=== PATIENT | female | born 1975 | race Hispanic/Latino ===

== ENCOUNTER 2017-05-12 13:39 | Emergency (ER) | payer BC ==
[2017-05-12 13:40] VITALS: BMI 26.5
[2017-05-12 13:48] VITALS: BP 120/72; PULSE 77; RESP 18; TEMP 97.6; O2SAT 100
--- NOTE | 2017-05-12 13:55 | ED PDOC ---
Arrival/HPI - General Chief Complaint: Chest Pain Time Seen by Provider: 05/12/17 13:44 Historian: Patient - History of Present Illness Narrative History of Present Illness (Text): 05/12/17 13:48 41 y/o female, pmh including htn, nkda, c/o chest pain x 2 days with no fall or trauma. Pt. stated that both episode is couple minute, happened while eating , non-exertional chest pain, no fall or trauma, no coughing, happened again today while eating lunch, no flank pain, no radiating pain, no numbness or tingling, no rash, no night sweat, no other medical or psychological complaints. Past Medical History - Provider Review Nursing Documentation Reviewed: Yes - Infectious Disease Hx of Infectious Diseases: None - Tetanus Immunization Tetanus Immunization: Unknown - Cardiac Hx Hypertension: Yes - Pulmonary Hx Respiratory Disorders: No - Neurological Hx Neurological Disorder: No - HEENT Hx HEENT Disorder: No - Renal Hx Renal Disorder: No - Endocrine/Metabolic Hx Endocrine Disorders: No - Hematological/Oncological Hx Blood Disorders: No - Integumentary Hx Dermatological Disorder: No - Musculoskeletal/Rheumatological Hx Musculoskeletal Disorders: No - Gastrointestinal Hx Gastrointestinal Disorders: No - Genitourinary/Gynecological Hx Genitourinary Disorders: No - Psychiatric Hx Depression: No Hx Emotional Abuse: No Hx Physical Abuse: No Hx Substance Use: No - Suicidal Assessment Feels Threatened In Home Enviroment: No Family/Social History - Physician Review Nursing Documentation Reviewed: Yes Family/Social History: Unknown Family HX Smoking Status: Never Smoked Hx Alcohol Use: No Hx Substance Use: No Hx Substance Use Treatment: No Allergies/Home Meds Allergies/Adverse Reactions: Allergies No Known Allergies Allergy (Verified 05/12/17 13:40) Home Medications: Home Meds Medication Instructions Recorded Confirmed Lisinopril [Zestril] 10 mg PO DAILY 05/12/17 05/12/17 Review of Systems - Review of Systems Constitutional: absent: Fatigue, Fevers Eyes: absent: Vision Changes ENT: absent: Hearing Changes Respiratory: absent: SOB, Cough Cardiovascular: Chest Pain Gastrointestinal: absent: Abdominal Pain, Diarrhea, Nausea, Vomiting Skin: absent: Rash, Pruritis Neurological: absent: Headache Psychiatric: absent: Anxiety, Depression Physical Exam Vital Signs Reviewed: Yes Vital Signs Temp Pulse Resp BP Pulse Ox 05/12/17 13:48 97.6 F 77 18 120/72 100 Temperature: Afebrile Blood Pressure: Normal Pulse: Regular Respiratory Rate: Normal Appearance: Positive for: Well-Appearing, Non-Toxic, Comfortable Pain Distress: Mild Mental Status: Positive for: Alert and Oriented X 3 - Systems Exam Head: Present: Atraumatic, Normocephalic Pupils: Present: PERRL Extroacular Muscles: Present: EOMI Conjunctiva: Present: Normal Mouth: Present: Moist Mucous Membranes Nose (External): Present: Atraumatic. No: Abrasion, Contusion, Laceration Nose (Internal): Present: Normal Inspection, No Active Bleeding. No: Rhinorrhea , Septal Hematoma, Epistaxis Neck: Present: Normal Range of Motion Respiratory/Chest: Present: Clear to Auscultation, Good Air Exchange. No: Respiratory Distress, Accessory Muscle Use Cardiovascular: Present: Regular Rate and Rhythm, Normal S1, S2. No: Murmurs Abdomen: Present: Tenderness (epigastric), Normal Bowel Sounds. No: Distention , Peritoneal Signs Back: Present: Normal Inspection Upper Extremity: Present: Normal Inspection. No: Cyanosis, Edema Lower Extremity: Present: Normal Inspection. No: Edema Neurological: Present: GCS=15, CN II-XII Intact, Speech Normal Skin: Present: Warm, Dry, Normal Color. No: Rashes Psychiatric: Present: Alert, Oriented x 3, Normal Insight, Normal Concentration Medical Decision Making ED Course and Treatment: 05/12/17 14:01 Differential: MS vs. Gastritis vs. Pancreatitis vs. Pneumonia vs. UTI vs. Cholecystitis -labs/ua/cardiac enzyme -ekg -cxr -gallbladder sonogram -IVF/pepcid/toradol -observe and reassess 05/12/17 16:05 -Urine hcg is negative -HEART Score is low. -EKG: NSR @ 76 BPM, no ST elevation or depression, no T wave inversion, no previous ekg avilable for comparison. -Chest xray show no active disease -Gallbladder sonogram: Cholelithiasis. No sonographic evidence of acute cholecystitis. -Labs are non-significant with troponin within normal limit after 2 days of symptoms. -UA show no UTI -Pt. feels completely relief with the pepcid, discussed about the labs and sonogram result which she will need general surgeon follow up as needed. -Discharge home with pepcid, bed rest, stay hydrated, follow up with your own pmd and GI/hydroelectric station chief within 2 days, return to the ER for any new or worsening signs or symptoms. - Lab Interpretations Lab Results: 05/12/17 14:00 05/12/17 14:00 Lab Results 05/12/17 15:47: Urine Color Yellow, Urine Appearance Sl cloudy, Urine pH 7.0, Ur Specific [place] 1.010, Urine Protein Negative, Urine Glucose (UA) Negative, Urine Ketones Negative, Urine Blood Large H, Urine Nitrate Negative, Urine Bilirubin Negative, Urine Urobilinogen 0.2, Ur Leukocyte Esterase Negative, Urine RBC 0 - 2, Urine WBC Negative, Ur Epithelial Cells 0 - 2 05/12/17 14:00: WBC 8.0, RBC 4.03, Hgb 12.3, Hct 37.8, MCV 93.8, MCH 30.5, MCHC 32.5, RDW 13.7, Plt Count 223, MPV 10.9, Gran % 62.6, Lymph % (Auto) 26.4, [place] % (Auto) 9.0 H, Eos % (Auto) 1.6, Baso % (Auto) 0.4, Gran # 5.04, Lymph # (Auto ) 2.1, [place] # (Auto) 0.7 H, Eos # (Auto) 0.1, Baso # (Auto) 0.03 05/12/17 14:00: Sodium 140, Potassium 3.9, Chloride 101, Carbon Dioxide 31, Anion Gap 12, BUN 19, Creatinine 0.7, Est GFR ( Amer) > 60, Est GFR (Non- Af Amer) > 60, Random Glucose 110, Calcium 9.8, Total Bilirubin 0.4, AST 23, ALT 21, Alkaline Phosphatase 53, Lactate Dehydrogenase 370, Total Creatine Kinase 105, Troponin I < 0.01, NT-Pro-B Natriuret Pep 35.7, Total Protein 7.5, Albumin 4.3, Globulin 3.2, Albumin/Globulin Ratio 1.3, Lipase 95 - RAD Interpretation Radiology Orders: 05/12/17 13:56 CHEST TWO VIEWS (PA/LAT) [RAD] Stat GALL BLADDER [US] Stat -Chest xray HISTORY: chest pain x 2 days COMPARISON: No prior. TECHNIQUE: Chest PA and lateral FINDINGS: LUNGS: No active pulmonary disease. PLEURA: No significant pleural effusion identified. No pneumothorax apparent. CARDIOVASCULAR: Normal. OSSEOUS STRUCTURES: No significant abnormalities. VISUALIZED UPPER ABDOMEN: Normal. OTHER FINDINGS: None. IMPRESSION: No active disease. -Gallbladder sonogram HISTORY: epigastric pain COMPARISON: None. TECHNIQUE: Sonographic evaluation of the right upper quadrant of the abdomen. FINDINGS: LIVER: Measures 16.4 cm in length. Patent portal vein. Portal venous flow: Hepatopetal. Unremarkable echogenicity of the liver parenchyma. No mass. No intrahepatic bile duct dilatation. GALLBLADDER: Cholelithiasis. Negative study for gallbladder wall thickening, pericholecystic fluid, sonographic Hernandez's sign. COMMON BILE DUCT: Measures 5.1 mm. No stones. No dilatation. PANCREAS: Unremarkable as visualized. No mass. No ductal dilatation. Portions of pancreatic tail are obscured by overlying bowel gas. RIGHT KIDNEY: Measures 4.3 x 9.5 cm in length. Normal echogenicity. No calculus, mass, or hydronephrosis. AORTA: No aneurysmal dilatation. IVC: Unremarkable. OTHER FINDINGS: None . IMPRESSION: Cholelithiasis. No sonographic evidence of acute cholecystitis. Polytechnic Teacher: Radiologist - EKG Interpretation EKG Interpretation (Text): 05/12/17 14:02 -EKG: NSR @ 76 BPM, no ST elevation or depression, no T wave inversion, no previous ekg avilable for comparison. Interpreted by ED Physician: Yes Type: 12 lead EKG Comparison: No previous EKG avail. - Medication Orders Current Medication Orders: Sodium Chloride (Sodium Chloride 0.9%) 1,000 mls @ 250 mls/hr IV .Q4H CHRISTIAN Last Admin: 05/12/17 14:11 Dose: 250 mls/hr eMAR Start Stop Document 05/12/17 14:11 HP (Rec: 05/12/17 14:11 HP [id number]) Intravenous Solution Start Date 05/12/17 Start Time 14:11 End Date 05/12/17 End time 18:11 Total Infusion Time 240 Discontinued Medications Famotidine (Pepcid) 20 mg IVP STAT STA Stop: 05/12/17 13:57 Last Admin: 05/12/17 14:11 Dose: 20 mg IVP Administration Document 05/12/17 14:11 HP (Rec: 05/12/17 14:11 HP [id number]) Charges for Administration # of IVP Administrations 1 Sodium Chloride (Sodium Chloride 0.9%) 1,000 mls @ 100 mls/hr IV .Q10H CHRISTIAN Ketorolac Tromethamine (Toradol) 30 mg IVP STAT STA Stop: 05/12/17 13:57 Last Admin: 05/12/17 14:11 Dose: 30 mg MAR Pain Assessment Document 05/12/17 14:11 HP (Rec: 05/12/17 14:11 HP [id number]) Pain Reassessment Is this a pain reassessment? 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 Disposition/Present on Arrival - Present on Arrival Any Indicators Present on Arrival: No History of DVT/PE: No History of Uncontrolled Diabetes: No Urinary Catheter: No History of Decub. Ulcer: No History Surgical Site Infection Following: None - Disposition Have Diagnosis and Disposition been Completed?: Yes Diagnosis: Atypical chest pain, Cholelithiasis Disposition: HOME/ ROUTINE Disposition Time: 14:03 Patient Plan: Discharge Patient Problems: Current Active Problems Problem Status Onset Atypical chest pain Acute Cholelithiasis Acute Condition: IMPROVED Discharge Instructions (ExitCare): Chest Pain (ED) Additional Instructions: -Discharge home with pepcid, bed rest, stay hydrated, follow up with your own pmd and GI/hydroelectric station chief within 2 days, return to the ER for any new or worsening signs or symptoms. Prescriptions: Famotidine [Pepcid] 20 mg PO BID #28 tab Referrals: Shivam Navarrete DO [Primary Care Provider] - Follow up with primary Terrence Sidhu MD [Staff Provider] - Follow up with primary Elian Austin MD [Staff Provider] - Follow up with primary Joel Red MD [Medical Doctor] - Follow up with primary Forms: WORK NOTE
[2017-05-12] MEDS ORDERED: Sodium Chloride 0.9% 1,000 ML IV SCH ×2 (14:00→14:03)
[2017-05-12 14:42] LABS: BASO # 0.03 K/mm3 (0.0-2.0); BASO % 0.4 % (0.0-3.0); EOS # 0.1 (0.0-0.7); EOS % 1.6 % (1.5-5.0); GRAN # 5.04 (1.4-6.5); GRAN % 62.6 % (50.0-68.0); HEMOGLOBIN 12.3 g/dL (12.0-16.0); LYMPH # 2.1 (1.2-3.4); LYMPH % 26.4 % (22.0-35.0); MEAN CELL VOLUME 93.8 fl (80.0-105.0); MEAN CORPUSCULAR HEMOGLOBIN 30.5 pg (25.0-35.0); MEAN CORPUSCULAR HGB CONC 32.5 g/dl (31.0-37.0); MEAN PLATELET VOLUME 10.9 fl (7.0-11.0); MONO # 0.7 (0.1-0.6); RBC 4.03 10^6/uL (3.5-6.1); RED CELL DISTRIBUTION WIDTH 13.7 % (11.5-14.5)
--- NOTE | 2017-05-12 14:47 | CARD ---
APPROVED REPORT EKG Measurement Heart [id number] <Conclusion> Normal sinus rhythm Normal ECG
[2017-05-12 15:00] LABS: B-TYPE NATRIURETIC PEPTIDE 35.7 pg/mL (0-450); TROPONIN I < 0.01 ng/mL
[2017-05-12 15:26] LABS: ALB/GLOB RATIO 1.3 (1.1-1.8); ALBUMIN 4.3 g/dL (3.0-4.8); ALT/SGPT 21 U/L (7-56); AST/SGOT 23 U/L (14-36); BLOOD UREA NITROGEN 19 mg/dL (7-21); CALCIUM 9.8 mg/dL (8.4-10.5); GFR AFRICAN-AMERICAN > 60; GFR NON-AFRICAN AMERICAN > 60; LIPASE 95 U/L (23-300)
--- NOTE | 2017-05-12 15:36 | RAD ---
HISTORY: chest pain x 2 days COMPARISON: No prior. TECHNIQUE: Chest PA and lateral FINDINGS: LUNGS: No active pulmonary disease. PLEURA: No significant pleural effusion identified. No pneumothorax apparent. CARDIOVASCULAR: Normal. OSSEOUS STRUCTURES: No significant abnormalities. VISUALIZED UPPER ABDOMEN: Normal. OTHER FINDINGS: None. IMPRESSION: No active disease.
--- NOTE | 2017-05-12 15:52 | US ---
HISTORY: epigastric pain COMPARISON: None. TECHNIQUE: Sonographic evaluation of the right upper quadrant of the abdomen. FINDINGS: LIVER: Measures 16.4 cm in length. Patent portal vein. Portal venous flow: Hepatopetal. Unremarkable echogenicity of the liver parenchyma. No mass. No intrahepatic bile duct dilatation. GALLBLADDER: Cholelithiasis. Negative study for gallbladder wall thickening, pericholecystic fluid, sonographic Hernandez's sign. COMMON BILE DUCT: Measures 5.1 mm. No stones. No dilatation. PANCREAS: Unremarkable as visualized. No mass. No ductal dilatation. Portions of pancreatic tail are obscured by overlying bowel gas. RIGHT KIDNEY: Measures 4.3 x 9.5 cm in length. Normal echogenicity. No calculus, mass, or hydronephrosis. AORTA: No aneurysmal dilatation. IVC: Unremarkable. OTHER FINDINGS: None . IMPRESSION: Cholelithiasis. No sonographic evidence of acute cholecystitis.
[2017-05-12 15:56] LABS: URINE APPEARANCE SL CLOUDY (CLEAR); URINE BILIRUBIN NEGATIVE (NEGATIVE); URINE BLOOD LARGE (NEGATIVE); URINE COLOR YELLOW (YELLOW); URINE GLUCOSE (UA) NEGATIVE (NEGATIVE); URINE LEUKOCYTE ESTERASE NEGATIVE Leu/uL (NEGATIVE); URINE PROTEIN NEGATIVE mg/dL (<30 mg/dL); URINE UROBILINOGEN 0.2 E.U./dL (<1 E.U./dL)
[2017-05-12 16:10] LABS: URINE EPITHELIAL CELLS 0 - 2 /hpf (0-5); URINE RBC 0 - 2 /hpf (0-2); URINE WBC NEGATIVE /hpf (0-6)
== END 2017-05-12 16:23 | disposition home or self-care (01) ==
LOC: ED 13:39
DX: R07.9 Chest pain, unspecified (principal); K80.20 Calculus of gallbladder without cholecystitis without obstruction; I10 Essential (primary) hypertension
CPT/HCPCS: 71046; 76705; 80053; 81001; 82550; 83615; 83690; 83880; 84484; 85025; 93005; 96361; 96374; 96375; 99283; J1885; J7040

== ENCOUNTER 2017-05-19 07:06 | Day surgery (SDC) | payer BC ==
[2017-05-19 07:07] VITALS: BMI 26.5
[2017-05-19] MEDS ORDERED: Sodium Chloride 0.9% 1,000 ML IV STA (08:00)
--- NOTE | 2017-05-19 08:09 | ED PDOC ---
Arrival/HPI <Jeramie David - Last Filed: 05/19/17 08:34> - General Historian: Patient - History of Present Illness Time/Duration: > week Symptom Course: Intermittent Quality: Cramping, Burning Severity Level: 5 Activities at Onset: Eating Context: Sitting <Dony Chrisn - Last Filed: 05/19/17 09:43> - General Chief Complaint: Abdominal Pain Time Seen by Provider: 05/19/17 07:39 - History of Present Illness Narrative History of Present Illness (Text): 05/19/17 08:05 41F pmhx of HTN controlled presents to [facility] ED w/ continued intermittent Mid- epigastric and RLQ radiating to the right shoulder crampy abd pain for over one week (8days). Patient was seen last Friday (8days ago) for similar symptoms which revealed cholelithiasis. Pain is worse after eating, better w/ standing and fasting. Currently associated nausea, no vomiting. Last meal was yesterday at 10pm and has not eaten since then. No recent foreign travel or sick contacts Denies current: fevers, chills, chest pain, shortness of breath, vomiting, diarrhea, changes in urinary or bowel habits, numbness/tingling in extremities. Of note: Saw Dr. Navarrete last week and referred to Dr. Wright for surgery. If pain continued to come to the ER PMD: [place] Surgeon: Kyle PMH: HTN PSH: none ALL: NKDA SocialHx: denies ETOH, tobacco, recreational drug use (Arsen Chris) Past Medical History - Provider Review Nursing Documentation Reviewed: Yes - Travel History Have you recently traveled outside [place] w/in the past 3 mons?: No - Infectious Disease Hx of Infectious Diseases: None - Tetanus Immunization Tetanus Immunization: Unknown - Cardiac Hx Cardiac Disorders: Yes Hx Hypertension: Yes - Pulmonary Hx Respiratory Disorders: No - Neurological Hx Neurological Disorder: No - HEENT Hx HEENT Disorder: No - Renal Hx Renal Disorder: No - Endocrine/Metabolic Hx Endocrine Disorders: No - Hematological/Oncological Hx Blood Disorders: No - Integumentary Hx Dermatological Disorder: No - Musculoskeletal/Rheumatological Hx Musculoskeletal Disorders: No - Gastrointestinal Hx Gastrointestinal Disorders: No - Genitourinary/Gynecological Hx Genitourinary Disorders: No - Psychiatric Hx Depression: No Hx Emotional Abuse: No Hx Physical Abuse: No Hx Substance Use: No - Suicidal Assessment Feels Threatened In Home Enviroment: No <Dony Chrisn - Last Filed: 05/19/17 09:43> Family/Social History - Physician Review Nursing Documentation Reviewed: Yes Family/Social History: Other (non-contributory) Smoking Status: Never Smoked Hx Alcohol Use: Yes Frequency of alcohol use: Socially Hx Substance Use: No Hx Substance Use Treatment: No <YnessheaDony finchn - Last Filed: 05/19/17 09:43> Allergies/Home Meds <Jeramie David - Last Filed: 05/19/17 08:34> <Rolf Chrissan - Last Filed: 05/19/17 09:43> Allergies/Adverse Reactions: Allergies No Known Allergies Allergy (Verified 05/19/17 07:36) Home Medications: Home Meds Medication Instructions Recorded Confirmed Lisinopril [Zestril] 10 mg PO DAILY 05/12/17 05/19/17 Review of Systems - Physician Review All systems were reviewed & negative as marked: Yes - Review of Systems Constitutional: Normal. absent: Weight Change, Fevers Eyes: absent: Vision Changes, Photophobia ENT: absent: Hearing Changes, Tinnitus Respiratory: absent: SOB, Cough, Sputum Cardiovascular: absent: Chest Pain, Palpitations Gastrointestinal: Abdominal Pain, Nausea, Appetite Changes. absent: Stool Changes, Constipation, Diarrhea, Vomiting, Hematochezia, Hematemesis Genitourinary Female: absent: Dysuria, Frequency, Hematuria Musculoskeletal: Back Pain (Refferred right shoulder pain). absent: Arthralgias Neurological: absent: Headache, Dizziness Endocrine: absent: Diaphoresis Hemo/Lymphatic: absent: Adenopathy Psychiatric: absent: Anxiety <Dony Chrisn - Last Filed: 05/19/17 09:43> Physical Exam Vital Signs Reviewed: Yes Temperature: Afebrile Blood Pressure: Normal Pulse: Regular Respiratory Rate: Normal Appearance: Positive for: Well-Appearing, Non-Toxic, Comfortable Pain Distress: None Mental Status: Positive for: Alert and Oriented X 3 - Systems Exam Head: Present: Atraumatic, Normocephalic Pupils: Present: PERRL Extroacular Muscles: Present: EOMI Conjunctiva: Present: Normal Mouth: Present: Moist Mucous Membranes. No: Drooling, Trismus Pharnyx: Present: Normal. No: ERYTHEMA, EXUDATE Neck: Present: Normal Range of Motion. No: MIDLINE TENDERNESS, JVD Respiratory/Chest: Present: Clear to Auscultation, Good Air Exchange. No: Respiratory Distress, Accessory Muscle Use Cardiovascular: Present: Regular Rate and Rhythm, Normal S1, S2. No: Murmurs Abdomen: Present: Tenderness (RUQ +cruz). No: Distention, Peritoneal Signs, McBurney's Point Tender, Rovsing's Sign Present Back: Present: Normal Inspection. No: CVA Tenderness, Midline Tenderness Upper Extremity: Present: Normal Inspection, NORMAL PULSES. No: Cyanosis, Edema Lower Extremity: Present: Normal Inspection. No: Edema, CALF TENDERNESS Neurological: Present: GCS=15, Speech Normal Skin: Present: Warm, Dry Psychiatric: Present: Alert, Oriented x 3 <Arsen Chris - Last Filed: 05/19/17 09:43> Vital Signs Temp Pulse Resp BP Pulse Ox 05/19/17 09:29 56 L 18 131/72 99 05/19/17 07:37 98.2 F 68 17 135/80 99 Medical Decision Making <Jeramie David - Last Filed: 05/19/17 08:34> - Lab Interpretations I have reviewed the lab results: Yes Interpretation: No sign. chg./baseline - EKG Interpretation Interpreted by ED Physician: Yes Comparison: Similar to previous EKG <Arsen Chris - Last Filed: 05/19/17 09:43> ED Course and Treatment: 05/19/17 08:34 Seen and examined with the resident. Our history and physical exam reveals a young woman with continued right upper quadrant abdominal pain. No vomiting. Known cholelithiasis on ultrasound last week. She will be admitted to the hospital for surgery this morning. (Jeramie David) 05/19/17 08:21 CBC/CMP/ Lipase CXR/EKG serial abd exam IVF/Pepcid/Zofran re-eval and reassess Discussed case in detail w/ the surgery team. Will be admitted and plan for OR today for cholecystectomy (Arsen Chris) - Lab Interpretations Narrative Lab Interpretation (Text): 05/19/17 09:42 WBC WNL POC negative No elevation in Lipase (Arsen Chris) Lab Results: 05/19/17 08:45 05/19/17 08:45 Lab Results 05/19/17 08:45: Sodium 140, Potassium 3.9, Chloride 103, Carbon Dioxide 25, Anion Gap 15, BUN 22 H, Creatinine 0.7, Est GFR ( Amer) > 60, Est GFR ( Non-Af Amer) > 60, Random Glucose 88, Calcium 9.6, Total Bilirubin 0.5, AST 22, ALT 23, Alkaline Phosphatase 54, Total Protein 7.5, Albumin 4.2, Globulin 3.3, Albumin/Globulin Ratio 1.3, Lipase 91 05/19/17 08:45: Urine Color Yellow, Urine Appearance Clear, Urine pH 6.0, Ur Specific [place] >= 1.030, Urine Protein Trace H, Urine Glucose (UA) Negative, Urine Ketones Negative, Urine Blood Negative, Urine Nitrate Negative, Urine Bilirubin Negative, Urine Urobilinogen 0.2, Ur Leukocyte Esterase Negative, Urine RBC 0 - 2, Urine WBC 1 - 3, Ur Epithelial Cells 6 - 8, Amorphous Sediment Few, Urine Bacteria Many, Urine Other Uyeast 05/19/17 08:45: WBC 6.1 D, RBC 3.96, Hgb 12.2, Hct 36.4, MCV 91.9, MCH 30.8, MCHC 33.5, RDW 13.5, Plt Count 215, MPV 10.7, Gran % 58.7, Lymph % (Auto) 28.2, [place] % (Auto) 10.8 H, Eos % (Auto) 1.8, Baso % (Auto) 0.5, Gran # 3.59, Lymph # (Auto) 1.7, [place] # (Auto) 0.7 H, Eos # (Auto) 0.1, Baso # (Auto) 0.03 - RAD Interpretation Radiology Orders: 05/19/17 08:00 CHEST PORTABLE [RAD] Stat - EKG Interpretation EKG Interpretation (Text): 05/19/17 09:42 Sinus Colt Otherwise normal EKG (Arsen Chris) - Medication Orders Current Medication Orders: Ceftriaxone Sodium (Rocephin 1 Gram Ivpb) 1 gm in 100 mls @ 100 mls/hr IVPB DAILY CHRISTIAN PRN Reason: Protocol Discontinued Medications Famotidine (Pepcid) 20 mg IVP STAT STA Stop: 05/19/17 08:03 Last Admin: 05/19/17 08:51 Dose: 20 mg IVP Administration Document 05/19/17 08:51 [facility] (Rec: 05/19/17 08:51 [id number] Charges for Administration # of IVP Administrations 1 Sodium Chloride (Sodium Chloride 0.9%) 1,000 mls @ 999 mls/hr IV .Q1H1M STA Stop: 05/19/17 09:00 Last Admin: 05/19/17 08:51 Dose: 999 mls/hr eMAR Start Stop Document 05/19/17 08:51 [facility] (Rec: 05/19/17 08:51 [id number] Intravenous Solution Start Date 05/19/17 Start Time 08:51 End Date 05/19/17 End time 09:51 Total Infusion Time 60 Ondansetron HCl (Zofran Inj) 4 mg IVP STAT STA Stop: 05/19/17 08:03 Last Admin: 05/19/17 08:50 Dose: 4 mg IVP Administration Document 05/19/17 08:50 [facility] (Rec: 05/19/17 08:51 [id number] Charges for Administration # of IVP Administrations 1 - PA / COMMERCIAL REAL ESTATE AGENT / Resident Statement / has reviewed & agrees with the documentation as recorded. / has examined the patient and agrees with the treatment plan. <Arsen Chris - Last Filed: 05/19/17 09:43> Disposition/Present on Arrival - Present on Arrival Any Indicators Present on Arrival: No History of DVT/PE: No History of Uncontrolled Diabetes: No Urinary Catheter: No History of Decub. Ulcer: No - Disposition Have Diagnosis and Disposition been Completed?: Yes Patient Plan: Observation <Jeramie David - Last Filed: 05/19/17 08:34> - Present on Arrival Any Indicators Present on Arrival: No History of DVT/PE: No History of Uncontrolled Diabetes: No Urinary Catheter: No History of Decub. Ulcer: No History Surgical Site Infection Following: None - Disposition Have Diagnosis and Disposition been Completed?: Yes Disposition Time: 08:28 Patient Plan: Admission <Arsen Chris - Last Filed: 05/19/17 09:43> - Disposition Diagnosis: Symptomatic cholelithiasis Disposition: HOSPITALIZED Patient Problems: Current Active Problems Problem Status Onset Symptomatic cholelithiasis Acute Condition: STABLE Referrals: Shivam Navarrete DO [Primary Care Provider] - Follow up with primary Forms: [employer] ([place])
--- NOTE | 2017-05-19 08:40 | CP.PCM.CON ---
History of Present Illness - History of Present Illness History of Present Illness: CC: Abdominal Pain HPI: 41 year old female presents for abdominal pain and "pressure" that has been going on for about a week. Patient stated she came to ED on Friday for "chest pain" and was found to have gallstones. Patient was discharged and followed up with PCP Dr. Navarrete on Friday. Dr. Navarrete told patient that if the pain does not improve, to come to ED. Patient stated the pain is constant and has trouble finding a comfortable place. Pain has not improved with advil. Patient denies eating or drinking since 10pm last night. Patient denies nausea and vomiting. MedHx: HTN Medications: Lisinopril 10mg Allergies: NKDA Hospitalization: denied PSH: [place] Teeth Removal SocialHX: denies tobacco use or illicit drug use; social drinker. FamHX: Mother- Ovarian Cancer (41); Father- Alive Heart Disease, Heart Transplant, Cirrhosis Review of Systems - Constitutional Constitutional: absent: Chills, Fever - Cardiovascular Cardiovascular: absent: Chest Pain - Respiratory Respiratory: absent: Dyspnea - Gastrointestinal Gastrointestinal: Abdominal Pain. absent: Constipation, Heartburn, Hematemesis , Hematochezia, Loose Stools, Nausea, Vomiting - Genitourinary Genitourinary: absent: Dysuria Past Patient History - Infectious Disease Hx of Infectious Diseases: None - Tetanus Immunizations Tetanus Immunization: Unknown - Past Social History Smoking Status: Never Smoked Alcohol: Social Drugs: Denies - CARDIAC Hx Cardiac Disorders: Yes Hx Hypertension: Yes - PULMONARY Hx Respiratory Disorders: No - NEUROLOGICAL Hx Neurological Disorder: No - HEENT Hx HEENT Problems: No - RENAL Hx Chronic Kidney Disease: No - ENDOCRINE/METABOLIC Hx Endocrine Disorders: No - HEMATOLOGICAL/ONCOLOGICAL Hx Blood Disorders: No - INTEGUMENTARY Hx Dermatological Problems: No - MUSCULOSKELETAL/RHEUMATOLOGICAL Hx Musculoskeletal Disorders: No - GASTROINTESTINAL Hx Gastrointestinal Disorders: No - GENITOURINARY/GYNECOLOGICAL Hx Genitourinary Disorders: No - PSYCHIATRIC Hx Depression: No Hx Emotional Abuse: No Hx Physical Abuse: No Hx Substance Use: No - SURGICAL HISTORY Hx Surgeries: No Meds Allergies/Adverse Reactions: Allergies Allergy/AdvReac Type Severity Reaction Status Date / Time No Known Allergies Allergy Verified 05/19/17 07:36 - Medications Medications: Current Medications Sodium Chloride (Sodium Chloride 0.9%) 1,000 mls @ 999 mls/hr IV .Q1H1M STA Stop: 05/19/17 09:00 Physical Exam - Constitutional Appears: Non-toxic, No Acute Distress - Head Exam Head Exam: ATRAUMATIC, NORMOCEPHALIC - Eye Exam Eye Exam: Normal appearance - ENT Exam ENT Exam: Mucous Membranes Moist - Neck Exam Neck exam: Positive for: Normal Inspection - Respiratory Exam Respiratory Exam: NORMAL BREATHING PATTERN - Cardiovascular Exam Cardiovascular Exam: REGULAR RHYTHM, +S1, +S2 - GI/Abdominal Exam GI & Abdominal Exam: Soft, Tenderness. absent: Distended, Firm, Guarding, Hernia, Rebound, Rigid Additional comments: RUQ TTP - Rectal Exam Rectal Exam: Deferred - Extremities Exam Extremities exam: Positive for: normal inspection - Back Exam Back exam: NORMAL INSPECTION - Neurological Exam Neurological exam: Alert, Oriented x3 - Psychiatric Exam Psychiatric exam: Normal Affect, Normal Mood - Skin Skin Exam: Dry, Intact, Warm Results - Vital Signs Recent Vital Signs: Last Vital Signs Temp 98.2 F 05/19/17 07:37 Pulse 68 05/19/17 07:37 Resp 17 05/19/17 07:37 BP 135/80 05/19/17 07:37 Pulse Ox 99 05/19/17 07:37 Assessment & Plan - Assessment and Plan (Free Text) Assessment: 1. Cholelithiasis -OR today, Laparoscopic Cholecystecomy -NPO - IVF -Rocephin 1gm -Pain control - Nausea control 2. Hypertension -Continue Lisinopril after procedure 3. Prophylaxis -SCDs -GI ppx Will DW Dr. Wright
[2017-05-19 08:58] LABS: BASO # 0.03 K/mm3 (0.0-2.0); BASO % 0.5 % (0.0-3.0); EOS # 0.1 (0.0-0.7); EOS % 1.8 % (1.5-5.0); GRAN # 3.59 (1.4-6.5); GRAN % 58.7 % (50.0-68.0); HEMOGLOBIN 12.2 g/dL (12.0-16.0); LYMPH # 1.7 (1.2-3.4); LYMPH % 28.2 % (22.0-35.0); MEAN CELL VOLUME 91.9 fl (80.0-105.0); MEAN CORPUSCULAR HEMOGLOBIN 30.8 pg (25.0-35.0); MEAN CORPUSCULAR HGB CONC 33.5 g/dl (31.0-37.0); MEAN PLATELET VOLUME 10.7 fl (7.0-11.0); MONO # 0.7 (0.1-0.6); MONO % 10.8 % (1.0-6.0); RBC 3.96 10^6/uL (3.5-6.1); RED CELL DISTRIBUTION WIDTH 13.5 % (11.5-14.5); URINE BILIRUBIN NEGATIVE (NEGATIVE); URINE BLOOD NEGATIVE (NEGATIVE); URINE GLUCOSE (UA) NEGATIVE (NEGATIVE); URINE LEUKOCYTE ESTERASE NEGATIVE Leu/uL (NEGATIVE); URINE PROTEIN TRACE mg/dL (<30 mg/dL); URINE UROBILINOGEN 0.2 E.U./dL (<1 E.U./dL); WHITE BLOOD COUNT 6.1 10^3/ul (4.5-11.0)
[2017-05-19 09:02] LABS: URINE APPEARANCE CLEAR (CLEAR); URINE COLOR YELLOW (YELLOW)
[2017-05-19 09:09] LABS: URINE AMORPHOUS SEDIMENT FEW; URINE BACTERIA MANY (NEG); URINE RBC 0 - 2 /hpf (0-2)
[2017-05-19 09:10] LABS: INR 1.06 (0.93-1.08); PARTIAL THROMBOPLASTIN TIME 28.8 Seconds (25.1-36.5); PROTHROMBIN TIME 12.2 SECONDS (9.4-12.5)
[2017-05-19 09:14] LABS: ALB/GLOB RATIO 1.3 (1.1-1.8); ALBUMIN 4.2 g/dL (3.0-4.8); ALT/SGPT 23 U/L (7-56); AST/SGOT 22 U/L (14-36); BLOOD UREA NITROGEN 22 mg/dL (7-21); CALCIUM 9.6 mg/dL (8.4-10.5); GFR AFRICAN-AMERICAN > 60; GFR NON-AFRICAN AMERICAN > 60; LIPASE 91 U/L (23-300)
--- NOTE | 2017-05-19 09:20 | RAD ---
HISTORY: abd pain COMPARISON: 05/12/2017 FINDINGS: LUNGS: No active pulmonary disease. PLEURA: No significant pleural effusion identified, no pneumothorax apparent. CARDIOVASCULAR: Normal. OSSEOUS STRUCTURES: No significant abnormalities. VISUALIZED UPPER ABDOMEN: Normal. OTHER FINDINGS: None. IMPRESSION: No active disease.
[2017-05-19] MEDS ORDERED: Morphine 4 mg/ml ISec IVP PRN (09:45)
[2017-05-19] MEDS ORDERED: Lactated Ringer's 1,000 ML IV SCH ×2 (09:45→16:30)
[2017-05-19] MEDS ORDERED: cefTRIAXone 1 gm 1 GM/100 ML BAG IVPB SCH (10:00)
--- NOTE | 2017-05-19 11:51 | CARD ---
APPROVED REPORT EKG Measurement Heart [id number] <Conclusion> Sinus bradycardia with sinus arrhythmia Otherwise normal ECG
[2017-05-19] MEDS ORDERED: Iohexol 240 (50 ml) ONE (13:10)
[2017-05-19] MEDS ORDERED: Bupivacaine 0.5% Inj(30mL) ONE (13:10)
[2017-05-19] MEDS ORDERED: cefTRIAXone (Rocephin) 1 gm Inj ONE (13:10)
[2017-05-19] MEDS ORDERED: Propofol 10 mg/ml Inj (20 ML) ONE ×3 (14:21→15:59)
[2017-05-19] MEDS ORDERED: Succinylcholine 200 mg/10 ml Inj IV ONE (14:22)
[2017-05-19] MEDS ORDERED: Rocuronium 10 mg/ml (5 ml) ONE (14:22)
[2017-05-19] MEDS ORDERED: Midazolam 2 MG/2 ML VIAL ONE (14:22)
[2017-05-19] MEDS ORDERED: Neostigmine Methylsulfate 3mg/3ml Syringe IV ONE (15:36)
[2017-05-19] MEDS ORDERED: Desflurane Inhalation Anesthetic Liq (240 ml) ONE (15:49)
[2017-05-19] MEDS ORDERED: HYDROmorphone 0.5 mg/0.5 ml ISec IVP PRN (16:17)
--- NOTE | 2017-05-19 16:40 | PCM.SURG1 ---
Surgeon's Initial Post Op Note - Surgeon's Notes Surgeon: Dr. Wright Chilling Hood Operator: Jaya Morales PGY2 Type of Anesthesia: General Endo Pre-Operative Diagnosis: symptomatic cholelithiasis Operative Findings: gallstones Post-Operative Diagnosis: SAme Operation Performed: Laparoscopic cholecystectomy Specimen/Specimens Removed: gallbladder Estimated Blood Loss: EBL {In ML}: 10 Blood Products Given: N/A Drains Used: No Drains Post-Op Condition: Good Date of Surgery/Procedure: 05/19/17 Time of Surgery/Procedure: 16:41
[2017-05-19] MEDS ORDERED: Oxycodone/Acetaminophen 5/325 mg Tab PO PRN (16:43)
--- NOTE | 2017-05-19 16:48 | CP.PCM.HP ---
History of Present Illness - History of Present Illness History of Present Illness: CC: Abdominal Pain HPI: 41 year old female presents for abdominal pain and "pressure" that has been going on for about a week. Patient stated she came to ED on Friday for "chest pain" and was found to have gallstones. Patient was discharged and followed up with PCP Dr. Navarrete on Friday. Dr. Navarrete told patient that if the pain does not improve, to come to ED. Patient stated the pain is constant and has trouble finding a comfortable place. Pain has not improved with advil. Patient denies eating or drinking since 10pm last night. Patient denies nausea and vomiting. MedHx: HTN Medications: Lisinopril 10mg Allergies: NKDA Hospitalization: denied PSH: [place] Teeth Removal SocialHX: denies tobacco use or illicit drug use; social drinker. FamHX: Mother- Ovarian Cancer (41); Father- Alive Heart Disease, Heart Transplant, Cirrhosis Present on Admission - Present on Admission Any Indicators Present on Admission: No Review of Systems - Review of Systems Review of Systems: See HPI - Respiratory Respiratory: absent: Cough, Dyspnea - Gastrointestinal Gastrointestinal: Abdominal Pain, Bloating, Nausea. absent: Belching, Heartburn , Hematochezia, Loose Stools, Melena, Vomiting - Musculoskeletal Musculoskeletal: absent: Back Pain Past Patient History - Infectious Disease Hx of Infectious Diseases: None - Tetanus Immunizations Tetanus Immunization: Unknown - Past Social History Smoking Status: Never Smoked - CARDIAC Hx Cardiac Disorders: Yes Hx Hypertension: Yes - PULMONARY Hx Respiratory Disorders: No - NEUROLOGICAL Hx Neurological Disorder: No - HEENT Hx HEENT Problems: No - RENAL Hx Chronic Kidney Disease: No - ENDOCRINE/METABOLIC Hx Endocrine Disorders: No - HEMATOLOGICAL/ONCOLOGICAL Hx Blood Disorders: No - INTEGUMENTARY Hx Dermatological Problems: No - MUSCULOSKELETAL/RHEUMATOLOGICAL Hx Musculoskeletal Disorders: No - GASTROINTESTINAL Hx Gastrointestinal Disorders: No - GENITOURINARY/GYNECOLOGICAL Hx Genitourinary Disorders: No - PSYCHIATRIC Hx Emotional Abuse: No Hx Physical Abuse: No Hx Substance Use: No - SURGICAL HISTORY Hx Surgeries: No Meds Allergies/Adverse Reactions: Allergies Allergy/AdvReac Type Severity Reaction Status Date / Time No Known Allergies Allergy Verified 05/19/17 07:36 Physical Exam - Constitutional Appears: No Acute Distress - Head Exam Head Exam: ATRAUMATIC, NORMAL INSPECTION, NORMOCEPHALIC - Eye Exam Eye Exam: EOMI, Normal appearance, PERRL Pupil Exam: NORMAL ACCOMODATION, PERRL - ENT Exam ENT Exam: Mucous Membranes Moist, Normal Exam - Neck Exam Neck exam: Positive for: Normal Inspection - Respiratory Exam Respiratory Exam: Clear to Auscultation Bilateral, NORMAL BREATHING PATTERN - Cardiovascular Exam Cardiovascular Exam: REGULAR RHYTHM - GI/Abdominal Exam GI & Abdominal Exam: Normal Bowel Sounds, Soft, Tenderness. absent: Distended, Firm, Guarding, Hernia, Pulsatile Mass, Rebound, Rigid Additional comments: RUQ EPigastric TTP - Exam Exam: NORMAL INSPECTION - Extremities Exam Extremities exam: Positive for: full ROM, normal inspection - Back Exam Back exam: NORMAL INSPECTION - Neurological Exam Neurological exam: Alert, CN II-XII Intact, Normal Gait, Oriented x3, Reflexes Normal - Psychiatric Exam Psychiatric exam: Normal Affect, Normal Mood - Skin Skin Exam: Dry, Intact, Normal Color, Warm Results - Vital Signs Recent Vital Signs: Last Vital Signs Temp 98.2 F 05/19/17 16:10 Pulse 62 05/19/17 16:10 Resp 17 05/19/17 16:10 BP 118/73 05/19/17 16:10 Pulse Ox 99 05/19/17 16:10 - Labs Result Diagrams: 05/19/17 08:45 05/19/17 08:45 Labs: Laboratory Results - last 24 hr 05/19/17 05/19/17 05/19/17 08:45 08:45 08:45 WBC 6.1 D RBC 3.96 Hgb 12.2 Hct 36.4 MCV 91.9 MCH 30.8 MCHC 33.5 RDW 13.5 Plt Count 215 MPV 10.7 Gran % 58.7 Lymph % (Auto) 28.2 [place] % (Auto) 10.8 H Eos % (Auto) 1.8 Baso % (Auto) 0.5 Gran # 3.59 Lymph # (Auto) 1.7 [place] # (Auto) 0.7 H Eos # (Auto) 0.1 Baso # (Auto) 0.03 PT INR APTT Sodium 140 Potassium 3.9 Chloride 103 Carbon Dioxide 25 Anion Gap 15 BUN 22 H Creatinine 0.7 Est GFR ( Amer) > 60 Est GFR (Non-Af Amer) > 60 Random Glucose 88 Calcium 9.6 Total Bilirubin 0.5 AST 22 ALT 23 Alkaline Phosphatase 54 Total Protein 7.5 Albumin 4.2 Globulin 3.3 Albumin/Globulin Ratio 1.3 Lipase 91 Urine Color Yellow Urine Appearance Clear Urine pH 6.0 Ur Specific [place] >= 1.030 Urine Protein Trace H Urine Glucose (UA) Negative Urine Ketones Negative Urine Blood Negative Urine Nitrate Negative Urine Bilirubin Negative Urine Urobilinogen 0.2 Ur Leukocyte Esterase Negative Urine RBC 0 - 2 Urine WBC 1 - 3 Ur Epithelial Cells 6 - 8 Amorphous Sediment Few Urine Bacteria Many Urine Other Uyeast Blood Type Blood Type Confirm Antibody Screen BBK History Checked 05/19/17 05/19/17 05/19/17 08:45 15:15 15:32 WBC RBC Hgb Hct MCV MCH MCHC RDW Plt Count MPV Gran % Lymph % (Auto) [place] % (Auto) Eos % (Auto) Baso % (Auto) Gran # Lymph # (Auto) [place] # (Auto) Eos # (Auto) Baso # (Auto) PT 12.2 INR 1.06 APTT 28.8 Sodium Potassium Chloride Carbon Dioxide Anion Gap BUN Creatinine Est GFR ( Amer) Est GFR (Non-Af Amer) Random Glucose Calcium Total Bilirubin AST ALT Alkaline Phosphatase Total Protein Albumin Globulin Albumin/Globulin Ratio Lipase Urine Color Urine Appearance Urine pH Ur Specific [place] Urine Protein Urine Glucose (UA) Urine Ketones Urine Blood Urine Nitrate Urine Bilirubin Urine Urobilinogen Ur Leukocyte Esterase Urine RBC Urine WBC Ur Epithelial Cells Amorphous Sediment Urine Bacteria Urine Other Blood Type O POSITIVE Blood Type Confirm O POSITIVE Antibody Screen Negative BBK History Checked No verified bt Assessment & Plan - Assessment and Plan (Free Text) Assessment: 1. Cholelithiasis -OR today, Laparoscopic Cholecystecomy -NPO - IVF -Rocephin 1gm -Pain control - Nausea control 2. Hypertension -Continue Lisinopril after procedure 3. Prophylaxis -SCDs -GI ppx EDWIGE Wright
[2017-05-19] MEDS ORDERED: Oxycodone/Acetaminophen 5/325 mg Tab PO ONE (17:30)
[2017-05-19] MEDS ORDERED: Oxycodone/Acetaminophen 5/325 mg Tab ONE (17:34)
[2017-05-19 17:54] VITALS: BP 135/85; PULSE 78; RESP 18; TEMP 98; O2SAT 96
--- NOTE | 2017-05-20 09:08 | OP ---
PROCEDURE DATE: 05/19/2017 PREOPERATIVE DIAGNOSES: Acute and chronic cholecystitis and lithiasis. POSTOPERATIVE DIAGNOSES: Acute and chronic cholecystitis and lithiasis. PROCEDURE: Laparoscopic cholecystectomy. SURGEON: Melvin Wright M.D. DAIRY FEED WORKER: Jaya Morales DO and Josh Perez DO ESTIMATED BLOOD LOSS: About 10 mL. DESCRIPTION OF PROCEDURE: The patient was identified by name, name of procedure, laterality, my hellen, and successful time-out was completed after the abdomen was prepped with chlorhexidine, dried, and then draped, waiting a full 3 minutes. In the operating room, after the above time-out and wait, a supraumbilical incision was made through the skin and subcutaneous tissue, dissected down to the fascia. The Veress needle was inserted. On the third attempt, we found the free peritoneal cavity. The opening pressure was about 4. A 2.5 L were given to a pressure of about 5 and the Visiport was then placed. The xiphoid 5 and two lateral 5's were placed, and the patient was placed in the position. There were adhesions behind the liver and the duodenum and the colon; these were taken down with Harmonic as they were vascular. The fundus and then the infundibulum were pulled out exposing the structures beneath. The peritoneum was pulled down exposing initially the cystic duct very clearly. The common duct was seen more distally. It was full, but not particularly dilated. There was a marked change between the cystic duct and the presumptive common. The artery was deep into the tissue by the liver. This required burning the [place]-tissue around it with the Harmonic scalpel as necessary. Eventually, we were completely around the artery and the cystic duct. Liver behind it was normal. The peritoneum either side of the gallbladder was taken down to give a clear view of safety. The cystic duct was doubly clipped. After the artery was clamped, it was doubly clipped and divided. The gallbladder was then taken off the liver bed using a combination of the hook at 15 and the Harmonic. Eventually it was taken into a bag and removed through the umbilicus without issue. The abdomen was copiously irrigated and dried. There was nothing untoward. No bleeding. No bile. The patient was taken to recovery room in good condition after the sponge and needle counts were declared correct. Melvin Wright MD [facility] # [phone]
== END 2017-05-19 18:50 | disposition home or self-care (01) ==
LOC: ED 07:06 → SDS 09:50
PROVIDERS: ATTEND Surgery
DX: K80.12 Calculus of gallbladder with acute and chronic cholecystitis without obstruction (principal); I10 Essential (primary) hypertension
CPT/HCPCS: 47562; 71045; 80053; 81001; 83690; 85025; 85610; 85730; 86850; 86900; 88304; 93005; 96361; 96374; 96375; 99283; J0330; J0696; J1100; J1885; J2001; J2250; J2405; J2704; J2710; J3010; J7040; J7120; Q9966

== ENCOUNTER 2017-09-26 09:35 | Emergency (ER) | payer BC ==
[2017-09-26 09:35] VITALS: BMI 26.5
--- NOTE | 2017-09-26 10:01 | ED PDOC ---
Arrival/HPI - General Chief Complaint: Abdominal Pain Time Seen by Provider: 09/26/17 09:50 Historian: Patient - History of Present Illness Narrative History of Present Illness (Text): 09/26/17 10:00 42 year old female, whose PMH includes cholecystectomy and hypertension, who presents to the emergency department complaining of RUQ discomfort since a couple of days that has become persistent today. Patient reports feeling pressure and discomfort gets worse with sitting associated with having nausea. Patient denies any fever, chest pain, shortness of breath, headache, dizziness, vomiting, diarrhea, dysuria, hematuria, or other complaints. Time/Duration: < week Symptom Onset: Gradual Symptom Course: Worsening Quality: Pressure Context: Home Past Medical History - Provider Review Nursing Documentation Reviewed: Yes - Infectious Disease Hx of Infectious Diseases: None - Tetanus Immunization Tetanus Immunization: Unknown - Cardiac Hx Cardiac Disorders: Yes Hx Hypertension: Yes - Pulmonary Hx Respiratory Disorders: No - Neurological Hx Neurological Disorder: No - HEENT Hx HEENT Disorder: No - Renal Hx Renal Disorder: No - Endocrine/Metabolic Hx Endocrine Disorders: No - Hematological/Oncological Hx Blood Disorders: No - Integumentary Hx Dermatological Disorder: No - Musculoskeletal/Rheumatological Hx Musculoskeletal Disorders: No - Gastrointestinal Hx Gastrointestinal Disorders: No - Genitourinary/Gynecological Hx Genitourinary Disorders: No - Psychiatric Hx Emotional Abuse: No Hx Physical Abuse: No Hx Substance Use: No - Surgical History Hx Cholecystectomy: Yes - Suicidal Assessment Feels Threatened In Home Enviroment: No Family/Social History - Physician Review Nursing Documentation Reviewed: Yes Family/Social History: Unknown Family HX Smoking Status: Never Smoked Hx Alcohol Use: Yes Frequency of alcohol use: Socially Hx Substance Use: No Hx Substance Use Treatment: No Allergies/Home Meds Allergies/Adverse Reactions: Allergies No Known Allergies Allergy (Verified 09/26/17 09:42) Home Medications: Home Meds Medication Instructions Recorded Confirmed Lisinopril [Zestril] 10 mg PO DAILY 05/12/17 09/26/17 Review of Systems - Review of Systems Constitutional: absent: Fevers Respiratory: absent: SOB Cardiovascular: absent: Chest Pain Gastrointestinal: Abdominal Pain (RUQ), Nausea. absent: Diarrhea, Vomiting, Appetite Changes Genitourinary Female: absent: Dysuria, Hematuria Musculoskeletal: absent: Back Pain Skin: absent: Rash Neurological: absent: Headache Endocrine: absent: Diaphoresis Physical Exam Vital Signs Reviewed: Yes Vital Signs Temp Pulse Resp BP Pulse Ox 09/26/17 13:28 98 F 61 18 111/72 97 09/26/17 12:54 98 F 61 18 111/72 97 09/26/17 09:43 98.4 F 72 16 114/74 99 09/26/17 09:35 98.4 F 72 16 114/74 99 Temperature: Afebrile Blood Pressure: Normal Pulse: Regular Respiratory Rate: Normal Appearance: Positive for: Well-Appearing, Non-Toxic, Comfortable Pain Distress: None Mental Status: Positive for: Alert and Oriented X 3 - Systems Exam Head: Present: Atraumatic, Normocephalic Pupils: Present: PERRL Extroacular Muscles: Present: EOMI Conjunctiva: Present: Normal Respiratory/Chest: Present: Clear to Auscultation, Good Air Exchange. No: Respiratory Distress, Accessory Muscle Use, Wheezes, Decreased Breath Sounds, Rales, Retracting, Rhonchi Cardiovascular: Present: Regular Rate and Rhythm, Normal S1, S2. No: Murmurs Abdomen: Present: Normal Bowel Sounds. No: Tenderness, Distention, Peritoneal Signs, Rebound, Guarding Neurological: Present: GCS=15, CN II-XII Intact, Speech Normal Skin: Present: Warm, Dry, Normal Color. No: Rashes Psychiatric: Present: Alert, Oriented x 3, Normal Insight, Normal Concentration Medical Decision Making ED Course and Treatment: 09/26/17 Impression: 42 year old female with unremarkable physical exam complaining of RUQ discomfort. Plan: -- Toradol -- Labs -- Reassess and disposition Progress Notes: 09/26/17 12:20 Ultrasound abdomen: Creator : Garett Nielsen MD FINDINGS: LIVER: Measures cm in length. Normal echogenicity of the liver parenchyma. No mass. No intrahepatic bile duct dilatation. GALLBLADDER: Cholecystectomy. COMMON BILE DUCT: Measures 7 mm. No stones. No dilatation. PANCREAS: Unremarkable as visualized. No mass. No ductal dilatation. RIGHT KIDNEY: Measures cm in length. Normal echogenicity. No calculus, mass, or hydronephrosis. AORTA: No aneurysmal dilatation. IVC: Unremarkable. OTHER FINDINGS: None . IMPRESSION: Cholecystectomy. Otherwise normal exam. Patient re-evaluated, unchanged after toradol, however she still denies pain and states that she just feels pressure. Results discussed, advised outpatient followup. Patient is amenable to discharge. Does not want pain medication, states that she still has percocet from her cholecystectomy in May that she never took. - Lab Interpretations Lab Results: 09/26/17 10:05 09/26/17 10:05 Lab Results 09/26/17 10:05: Sodium 141, Potassium 4.9, Chloride 104, Carbon Dioxide 28, Anion Gap 14, BUN 17, Creatinine 0.6 L, Est GFR ( Amer) > 60, Est GFR ( Non-Af Amer) > 60, Random Glucose 94, Calcium 9.5, Total Bilirubin 0.5, AST 19, ALT 25, Alkaline Phosphatase 47, Total Protein 7.6, Albumin 4.4, Globulin 3.2, Albumin/Globulin Ratio 1.4, Lipase 83 09/26/17 10:05: WBC 6.9, RBC 4.00, Hgb 12.1, Hct 36.2, MCV 90.5, MCH 30.3, MCHC 33.4, RDW 14.2, Plt Count 247, MPV 9.8, Gran % 61.3, Lymph % (Auto) 28.0, [place] % (Auto) 7.6 H, Eos % (Auto) 2.4, Baso % (Auto) 0.7, Gran # 4.25, Lymph # (Auto ) 1.9, [place] # (Auto) 0.5, Eos # (Auto) 0.2, Baso # (Auto) 0.05 I have reviewed the lab results: Yes - RAD Interpretation Radiology Orders: 09/26/17 10:39 COMMON BILE DUCT [US] Stat - Medication Orders Current Medication Orders: Discontinued Medications Ketorolac Tromethamine (Toradol) 30 mg IVP STAT STA Stop: 09/26/17 10:00 Last Admin: 09/26/17 10:08 Dose: 30 mg MAR Pain Assessment Document 09/26/17 10:08 SRE (Rec: 09/26/17 10:09 SRE [id number]) Pain Reassessment Is this a pain reassessment? Yes Sleep Is patient sleeping during reassessment? Yes Pain Scale Used Pain Scale Used Numeric Location Left, Right or Bilateral Right Upper or Lower Upper Pain Location Body Site Abdomen Description Description Intermittent IVP Administration Document 09/26/17 10:08 SRE (Rec: 09/26/17 10:09 SRE [id number]) Charges for Administration # of IVP Administrations 1 Re-Assess: LUISA Pain Assessment Document 09/26/17 11:08 SRE (Rec: 09/26/17 11:47 SRE [id number]) Pain Reassessment Is this a pain reassessment? Yes Sleep Is patient sleeping during reassessment? No Presence of Pain Presence of Pain No - Scribe Statement The provider has reviewed the documentation as recorded by the Kathibcornelius Stern Provider Scribe Attestation: All medical record entries made by the Scribe were at my direction and personally dictated by me. I have reviewed the chart and agree that the record accurately reflects my personal performance of the history, physical exam, medical decision making, and the department course for this patient. I have also personally directed, reviewed, and agree with the discharge instructions and disposition. Disposition/Present on Arrival - Present on Arrival Any Indicators Present on Arrival: No History of DVT/PE: No History of Uncontrolled Diabetes: No Urinary Catheter: No History of Decub. Ulcer: No History Surgical Site Infection Following: None - Disposition Have Diagnosis and Disposition been Completed?: Yes Diagnosis: RUQ abdominal pain Disposition: HOME/ ROUTINE Disposition Time: 13:30 Condition: GOOD Discharge Instructions (ExitCare): Acute Abdomen (Belly Pain), Adult (DC) Additional Instructions: BARBARA BARCLAY, thank you for letting us take care of you today. Your provider was Sudha Tapia MD and [facility]. The emergency medical care you received today was directed at your acute symptoms. If you were prescribed any medication, please fill it and take as directed. It may take several days for your symptoms to resolve. Return to the Emergency Department if your symptoms worsen, do not improve, or if you have any other problems. Please contact your doctor or call one of the physicians/clinics you have been referred to that are listed on the Patient Visit Information form that is included in your discharge packet. Bring any paperwork you were given at discharge with you along with any medications you are taking to your follow up visit. Our treatment cannot replace ongoing medical care by a primary care provider outside of the emergency department. Thank you for allowing the [facility] team to be part of your care today. If you had an X-Ray or CT scan: A Radiologist will review the ED reading if any change in treatment is needed we will contact you. If you had a blood, urine, or wound culture: It will take several days for the results, if any change in treatment is needed we will contact you. If you had an STI test: It will take 48 hours for the results. Please call after 1 week if you have not heard back. Referrals: Shivam Navarrete, DO [Primary Care Provider] - Follow up with primary Forms: [employer] (Swedish)
[2017-09-26 10:18] LABS: BASO # 0.05 K/mm3 (0.0-2.0); BASO % 0.7 % (0.0-3.0); EOS # 0.2 (0.0-0.7); EOS % 2.4 % (1.5-5.0); GRAN # 4.25 (1.4-6.5); GRAN % 61.3 % (50.0-68.0); HEMOGLOBIN 12.1 g/dL (12.0-16.0); LYMPH # 1.9 (1.2-3.4); MEAN CELL VOLUME 90.5 fl (80.0-105.0); MEAN CORPUSCULAR HEMOGLOBIN 30.3 pg (25.0-35.0); MEAN CORPUSCULAR HGB CONC 33.4 g/dl (31.0-37.0); MEAN PLATELET VOLUME 9.8 fl (7.0-11.0); MONO # 0.5 (0.1-0.6); MONO % 7.6 % (1.0-6.0); RED CELL DISTRIBUTION WIDTH 14.2 % (11.5-14.5); WHITE BLOOD COUNT 6.9 10^3/ul (4.5-11.0)
[2017-09-26 10:28] LABS: ALB/GLOB RATIO 1.4 (1.1-1.8); ALBUMIN 4.4 g/dL (3.0-4.8); ALT/SGPT 25 U/L (7-56); AST/SGOT 19 U/L (14-36); BLOOD UREA NITROGEN 17 mg/dL (7-21); CALCIUM 9.5 mg/dL (8.4-10.5); GFR AFRICAN-AMERICAN > 60; GFR NON-AFRICAN AMERICAN > 60; LIPASE 83 U/L (23-300)
--- NOTE | 2017-09-26 12:16 | US ---
Date of service: 09/26/2017 HISTORY: s/p jenny but still has ruq pain- look at duct COMPARISON: None. TECHNIQUE: Sonographic evaluation of the right upper quadrant of the abdomen. FINDINGS: LIVER: Measures cm in length. Normal echogenicity of the liver parenchyma. No mass. No intrahepatic bile duct dilatation. GALLBLADDER: Cholecystectomy. COMMON BILE DUCT: Measures 7 mm. No stones. No dilatation. PANCREAS: Unremarkable as visualized. No mass. No ductal dilatation. RIGHT KIDNEY: Measures cm in length. Normal echogenicity. No calculus, mass, or hydronephrosis. AORTA: No aneurysmal dilatation. IVC: Unremarkable. OTHER FINDINGS: None . IMPRESSION: Cholecystectomy. Otherwise normal exam.
[2017-09-26 12:55] VITALS: BP 111/72; PULSE 61; RESP 18; O2SAT 97
[2017-09-26 13:27] VITALS: TEMP 98
== END 2017-09-26 13:28 | disposition home or self-care (01) ==
LOC: ED 09:35
DX: R10.11 Right upper quadrant pain (principal); I10 Essential (primary) hypertension
CPT/HCPCS: 76705; 80053; 83690; 85025; 96374; 99284; J1885